=== PATIENT | female | born 2000 | race Caucasian/White ===

== ENCOUNTER 2021-10-08 03:05 | Emergency (ER) | payer MEDICAID, OTHER ==
[~2021-10-08] VITALS: Ht 170.2 cm; Wt 70.0 kg
[2021-10-08] MEDS ORDERED: normal saline 1000ml 1,000 ML IV ONE (03:10)
[2021-10-08] MEDS ORDERED: acetaminophen 325mg tablet PO ONE (03:10)
[2021-10-08] MEDS ORDERED: ibuprofen tablet 400 MG TABLET PO ONE (04:05)
[2021-10-08 07:09] VITALS: BP 112/62
== END 2021-10-08 07:32 | disposition home or self-care (01) ==
LOC: ER 03:06
DX: U07.1 COVID-19 (principal)
CPT/HCPCS: 71045; 87502; 87503; 87635; 99285; C9803

== ENCOUNTER 2023-10-31 23:18 | Emergency (ER) | payer BC, MEDICAID ==
[~2023-10-31] VITALS: Ht 172.7 cm; Wt 70.4 kg
[2023-11-01 00:18] LABS: BILIRUBIN,URINE NEGATIVE (Neg); CLARITY,URINE SLIGHTLY CLOUDY (Clear); COLOR,URINE YELLOW (Yellow); GLUCOSE, URINE NEGATIVE (Neg); KETONES,URINE NEGATIVE (Neg); LEUKOCYTE ESTERASE ,URINE NEGATIVE (Neg); NITRITES, URINE NEGATIVE (Neg); OCCULT BLOOD,URINE NEGATIVE (Neg); PROTEIN,URINE NEGATIVE (Neg); UROBILINOGEN,URINE 0.2 E.U/dL (0.2-1.0)
[2023-11-01 00:19] LABS: URINE HCG NEGATIVE (NEG)
[2023-11-01 00:20] LABS: BASOPHILS % (AUTO) 0.1 % (0-1); EOSINOPHILS % (AUTO) 0.2 % (0-6); HEMATOCRIT 39.5 % (35.0-45.0); HEMOGLOBIN 13.4 g/dl (12.0-16.0); LYMPHOCYTES # (AUTO) 4.8 X10'3 (1.1-4.8); LYMPHOCYTES % (AUTO) 36.3 % (21-51); MEAN CORPUSCULAR HEMOGLOBIN 30.2 PG (27.0-31.0); MEAN CORPUSCULAR HGB CONC 33.9 g/dL (33.0-36.5); MEAN CORPUSCULAR VOLUME 89.3 FL (78-98); MEAN PLATELET VOLUME 8.8 FL (7.4-10.4); MONOCYTES # (AUTO) 1.1 X10'3 (0-0.9); MONOCYTES % (AUTO) 8.4 % (2-12); NEUTROPHILS # (AUTO) 7.2 X10'3 (1.8-7.7); PLATELET COUNT 274 X10'3 (140-440); RED BLOOD COUNT 4.42 X10'6 (4.20-5.60); RED CELL DISTRIBUTION WIDTH 13.3 % (11.5-14.5); WHITE BLOOD COUNT 13.1 X10'3 (4.5-11.0)
[2023-11-01 00:22] LABS: UA COLLECTION TYPE CLN CATCH MIDSTREAM
[2023-11-01 00:26] LABS: ALANINE AMINOTRANSFERASE 49 U/L (12-78); ALBUMIN/GLOBULIN RATIO 1.1 (1.1-1.5); ALKALINE PHOSPHATASE 64 IU/L (46-116); ANION GAP 9 (8-16); ASPARTATE AMINO TRANSFERASE 30 U/L (10-37); BILIRUBIN,TOTAL 0.4 MG/DL (0.1-1.0); BLOOD UREA NITROGEN 18 MG/DL (7-18); BUN/CREATININE RATIO 14.6 (10.0-20.0); CALCIUM 9.2 MG/DL (8.5-10.1); CHLORIDE 101 MMOL/L (99-107); CREATININE 1.23 MG/DL (0.40-0.90); GLUCOSE 107 MG/DL (70-104); LIPASE 23 U/L (16-77); SODIUM 137 MMOL/L (135-145); TOTAL CARBON DIOXIDE 27.5 MMOL/L (24-32); TOTAL PROTEIN 7.7 G/DL (6.4-8.2); eCRCL 72 ML/MIN; eGFR 54 ML/MIN
[2023-11-01 00:30] LABS: MUCUS STRANDS MANY /LPF (Neg); SQUAMOUS EPITHELIAL CELL,UR MANY /LPF (FEW)
[2023-11-01 00:32] LABS: BACTERIA,URINE 1+ /HPF (Neg); RBC,URINE 0-2 /HPF (0-2); WBC,URINE 0-4 /HPF (0-4)
[2023-11-01] MEDS ORDERED: ondansetron 4mg rapidly disintigrating tab PO ONE (01:30)
[2023-11-01] MEDS ORDERED: bisacodyl 5mg tablet.DR PO ONE (01:30)
[2023-11-01] MEDS ORDERED: potassium Cl 20 mEq SR tablet PO ONE (01:30)
[2023-11-01] MEDS ORDERED: DOCU-171 PO (01:43)
[2023-11-01] MEDS ORDERED: POTA-207 PO (01:43)
[2023-11-01 01:54] VITALS: BP 130/76; PULSE 65; RESP 16; TEMP 98.9; O2SAT 98
== END 2023-11-01 01:55 | disposition home or self-care (01) ==
LOC: ER 23:19
DX: K92.1 Melena (principal); E87.6 Hypokalemia; Z79.899 Other long term (current) drug therapy
CPT/HCPCS: 36415; 80053; 81001; 81025; 83690; 85025; 99283